=== PATIENT | female | born 1950 | race Caucasian/White ===

== ENCOUNTER 2016-08-08 09:45 | Day surgery (SDC) | payer BC ==
[~2016-08-08] VITALS: Ht 160 cm; Wt 108.9 kg
[~2016-08-08 09:45] MED LIST: ASCOMP WITH CO1 EACH PO; ASPIRIN E.C.81 M1 PO; CYMBALTA60 MG PO; FISH OIL 1,2001 EAC4 PO; GLUCOTROL XL10 MG PO; Glucophage XR,Fortam PO; INDERAL LA160 MG PO; INVOKANA100 MG PO; Inderal LA PO; JANUVIA100 MG PO; LIPITOR40 MG PO; LO-DOSE ASPIRIN81 M2 PO; Lipitor PO; MIRAPEX0.125 MG PO; Milk Of Magnesia,MOM PO; Omega III EPA + DHA PO; Paxil PO; Phenergan PO; REGLAN5 MG PO; TOPAMAX50 MG PO; TUMS500 MG PO; ULTRAM50 MG PO; VITAMIN D2000 INTUN PO; VITAMIN D31000 UNI2 PO; ZESTRIL,PRINIVI10 M1 PO; ZESTRIL10 MG PO
[2016-08-08] MEDS ORDERED: TOPAMAX50 MG PO (10:18)
[2016-08-08 10:28] VITALS: BP 112/67
[2016-08-08 10:57] LABS: POINT-OF-CARE METER ID UU14174212
[2016-08-08 16:31] LABS: POINT-OF-CARE METER ID UU13113675
[2016-08-08 18:01] VITALS: BP 99/54
[2016-08-08 20:18] VITALS: BP 116/62
[2016-08-08 23:50] VITALS: BP 108/59
[2016-08-09 03:54] VITALS: BP 119/68
[2016-08-09 07:40] VITALS: BP 111/64
[2016-08-09] MEDS ORDERED: HYDROCODON-ACE1 EAC7 PO (08:48)
[2016-08-09 11:30] VITALS: BP 119/70
== END 2016-08-09 14:36 | disposition home or self-care (01) ==
LOC: SDC 09:45 → 2SOUTH 15:51 → 3EAST 18:00
PROVIDERS: Neurological Surgery
DX: M51.26 Other intervertebral disc displacement, lumbar region (principal); M51.36 Other intervertebral disc degeneration, lumbar region; M54.30 Sciatica, unspecified side; I10 Essential (primary) hypertension; E78.5 Hyperlipidemia, unspecified; E11.9 Type 2 diabetes mellitus without complications
CPT/HCPCS: 72100; 76000; 82948; G0378; J0690; J1040; J1100; J1170; J1885; J2250; J2405; J2710; J3010; J3480